=== PATIENT | male | born 1965 | race Caucasian/White ===

== ENCOUNTER → 2016-06-15 | Outpatient (CLI) | payer OTHER ==
[2016-06-15 08:36] LABS: BLOOD GAS BASE EXCESS 3.8 mmol/L (-2-2); BLOOD GAS CARBOXYHEMOGLOBIN 3.1 % (0-4); BLOOD GAS HCO3 28 mmol/L (22-26); BLOOD GAS METHEMOGLOBIN 1.4 % (0-2); BLOOD GAS O2 HGB SATURATION 92 % (90-100); BLOOD GAS OXYGEN CONTENT 19.8 Vol % (12.0-20.0); BLOOD GAS PCO2 46 mmHg (38-42); BLOOD GAS PO2 78 mmHg (61-120); BLOOD GAS TOTAL HGB 15.3 G/DL (12.0-16.0); TEMP CORR TO 98.6
[2016-06-15 08:37] LABS: CRITICAL VALUE NO; DRAW SITE LT RADIAL; FIO2 21 %; NUMBER OF ARTERIAL PUNCTURES 1; STAT NO; ULNAR PULSE PRESENT
--- NOTE | 2016-06-16 11:20 | RSPPFT ---
DATE OF PROCEDURE: 06/15/16 COMMENTS: Spirometry with FVC of 3.8 predicted 5.3, FEV1 of 2.0 predicted 3.9, FEV1/FVC ratio 53% predicted 72%. Post-bronchodilator FVC increases to 4.5 and FEV1 to 2.7. Air trapping is present with RV at 4.5 predicted 2.4. DLCO is within the predicted range. IMPRESSION: On the basis of the above, patient has a moderately severe obstructive lung defect with responsiveness to acutely inhaled bronchodilator.
== END ==
LOC: HRSP 07:46
PROVIDERS: ATTEND Internal Medicine Pulmonary Disease
DX: J45.909 Unspecified asthma, uncomplicated (principal); I50.9 Heart failure, unspecified
CPT/HCPCS: 36600; 82805; 94060; 94620; 94726; 94729